=== PATIENT | male | born 1945 | race Caucasian/White ===

== ENCOUNTER 2019-06-17 07:55 | Day surgery (SDC) | payer MEDICARE, BC ==
[~2019-06-17 07:55] MED LIST: CLINDAMYCIN 600MG/50ML PREMIX 600 MG/50 ML BAG IVPB ONE; FAMOTIDINE 20MG TABLET PO ONE; MECLIZINE 25 MG TABLET PO ONE; METOCLOPRAMIDE 10 MG TABLET PO ONE
[2019-06-17] MEDS ORDERED: MIDAZOLAM HCL 2MG/2ML VIAL IV ONE (07:56)
[2019-06-17] MEDS ORDERED: LIDOCAINE 2% MDV (20MG/ML) 20ML VIAL IV ONE (07:56)
[2019-06-17] MEDS ORDERED: PROPOFOL 10 MG/ML VIAL IV ONE (07:56)
[2019-06-17] MEDS ORDERED: EPHEDRINE SULFATE 50 MG/ML ML IV ONE (07:56)
[2019-06-17] MEDS ORDERED: ROPIVACAINE HCL (NAROPIN) /PF 5MG/ML 20ML VIAL IV ONE (07:56)
[2019-06-17] MEDS ORDERED: DEXAMETHASONE 4 MG/ML 1ML VIAL IVP ONE (07:56)
[2019-06-17 08:29] LABS: INR 1.1
[2019-06-17] MEDS ORDERED: RINGERS SOLUTION,LACTATED 1,000 ML IV ONE ×2 (08:30→10:30)
[2019-06-17] MEDS ORDERED: HYDROMORPHONE HCL 2 MG/ML VIAL IV PRN (12:45)
[2019-06-17] MEDS ORDERED: DIPHENHYDRAMINE HCL 25 MG CAPSULE PO PRN (12:45)
[2019-06-17] MEDS ORDERED: SENNOSIDES/DOCUSATE SODIUM UD CAPSULE PO PRN (12:45)
[2019-06-17] MEDS ORDERED: ZOLPIDEM TARTRATE 5 MG TABLET PO PRN (12:45)
[2019-06-17] MEDS ORDERED: NALOXONE 0.4 MG/1 ML VIAL IVP PRN (12:45)
[2019-06-17] MEDS ORDERED: METOCLOPRAMIDE HCL 10 MG/2 ML VIAL IVP PRN (12:45)
[2019-06-17] MEDS ORDERED: ACETAMINOPHEN 325 MG TAB PO PRN (12:45)
[2019-06-17] MEDS ORDERED: HYDROCODONE/APAP 5/325MG TABLET PO PRN (12:45)
[2019-06-17] MEDS ORDERED: AL HYDROX/MAG HYDROX 30ML UD PO PRN (12:45)
[2019-06-17] MEDS ORDERED: MAGNESIUM HYDROXIDE 30 ML UDC PO PRN (12:45)
[2019-06-17] MEDS ORDERED: OXYCODONE HCL/APAP 5MG/325MG TABLET PO PRN ×2 (12:45)
[2019-06-17] MEDS ORDERED: OMEPRAZOLE 20MG PO PRN (12:48)
[2019-06-17] MEDS ORDERED: NITROGLYCERIN 0.4MG SL TABLET #25 BTL SL PRN (12:49)
[2019-06-17] MEDS ORDERED: FLU VAC QS 2019-20 (INPT, 6MO+) 60MCG/0.5ML IM ONE (12:56)
[2019-06-17] MEDS: HYDROCODONE/APAP 5/325MG TABLET PO PRN (14:13)
[2019-06-17] MEDS: HYDROCHLOROTHIAZIDE 25MG PO SCH (14:16)
[2019-06-17] MEDS: LISINOPRIL 5 MG PO SCH (14:16)
--- NOTE | 2019-06-17 17:01 | Rehab Evaluation ---
Patient Information - Patient Information Diagnosis: L Knee DJD Ordered Treatment: PT Evaluate and Treat Status: Initial Evaluation Surgery: Yes (L TKA) Date of Surgery: 06/17/19 Past Medical/Surgical Hx: PAST MEDICAL/SURGICAL HISTORY Past Surgical History right total hip arthroplasty; left shoulder sx; left knee arthroscopy; prostatectomy; EGDX2; COLONOSCOPY;HERNIA SX-UMB; TONSILLECTOMY. 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 Hx Transient Ischemic Attacks Yes: 2004 (TIA) Hx Weakness Yes: ALL OVER-"LACK OF EXERCISE" PMH - GI Hx Gastrointestinal Disorders Yes Hx Gastroesophageal Reflux Yes Hx Hepatitis/Jaundice Yes: 1965 [place]-NO PROBLEMS SINCE Hx Pancreatitis Yes: 5+ YRS AGO Hx Rectal Bleeding Yes: HEMMORRHOID OCCAS Hx Ulcer Yes: 5+ YRS AGO PMH - Hx Genitourinary Disorders Yes Hx Prostate Problems Yes: CA OF PROSTATE 2007 PMH - Endocrine Hx Endocrine Disorders Yes Hx Diabetes No Hx Thyroid Disease Yes: HYPOACTIVE-ON SUPPLEMENT PMH - Musculoskeletal Hx Musculoskeletal Disorders Yes Hx Arthritis Yes: ALL OVER Hx Gout Yes: LAST ONE 6 MONTHS AGO PMH - Psych Hx Psychiatric Problems Yes Hx Depression Yes: AFTER MOTHERS PASSING-BETTER NOW PMH - Hematology/Oncology Hx Hematology/Oncology Yes Disorders Hx Bruising Yes: ON WARFARIN FOR A FIB Hx Cancer Yes: PROSTATE; 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 There are 3 steps to enter the home with no railings. In the bathroom there is a walk-in shower with grab bars, a hand-held shower head, and a shower bench. There is an elevated toilet seat but no grab bars by the toilet. The patient will have assistance wtih meals and transportation following surgery. He has a front-wheeled walker and a cane a vailable to him.) Precautions: [place], Fall, Other (WBAT on the L LE) - Time With Patient Total Time Spent With Patient (Min): 30 Treatment Procedures: Detail (Initial evaluation; low complexity Patient was left in the bed with his call light and bedside table within reach. The nursing staff was notified of his position.) Subjective Information - Subjective Information Per Patient (Patient stated that he had 3/10 pain in the L knee. When he sat up in bed he reported that he was experiencing some lightheadedness.) Objective Data - Pain Pain Present: Yes (Pain in the L knee) Pain Scale Used: Numeric (1 - 10) (3/10) - Mental Status Patient Orientation: Oriented x3 - Visual Perception Appears within normal limits for therapeutic activities - ROM Not within normal limits (L knee ROM limited as expected s/p L TKA procedure. L hip and ankle, and R LE ROM is within normal limits for functional activities.) - Strength/Tone Not within normal limits (L knee strength limited as expected s/p L TKA procedure. L ankle and hip, and R LE strength is within normal limits for functional activities.) - Coordination Appears within normal limits for therapeutic activities - Bed Mobility Needs Assist (Patient used the trapezee to help move himself to the edge of the bed. He was independent to move to the edge of the bed but required minimal assistance with his L LE to move it back into bed.) - Transfers Independent (Patient was independent in supine to sit, sit to stand, stand to sit, and sit to supine transfers. Patient used the trapezee to help sit up in bed.) - Balance Balance Sitting: Good Balance Standing: Good - Sensation Intact - Gait Detail (Patient ambulated 55 feet over smooth surfaces with a front wheeled walker with contact guard using WBAT on the L LE. He became short of breath with ambulation. At the end of ambulation when the patient was walking to the toilet he kept the walker out far in front of him in and required verbal cuing to keep it closer to his body. After sitting on the toilet he stated that he was experiencing some lightheadedness.) Therapy Assessment - Therapy Assessment Detail (Patient presents with L knee pain, decreased ROM and strength in the L knee, and gait abnormalities that make him a good candidate for inpatient physical therapy services. He will progress towards meeting his inpatient therapy goals in 1-2 more sessions.) Problem List - Problem List Physical Therapy Problem List: Detail (1. L knee pain 2. Decreased L knee strength 3. Decreased L knee ROM 4. Gait abnormalities 5. Shortness of breath with ambulation 6. Decreased tolerance for stairs) Goals - Goals Physical Therapy Goals: 1. Patient will be independent and demonstrate correct technique of HEP exercises to improve ROM and strength of the L knee. 2. Patient will be able to ambulate household distances independently with a front- wheeled walker to get around his home to perform ADLs. 3. Patient will demonstrate correct technique to ascend and descend 3 stairs to be able to get in and out of his home. Plan - Plan Physical Therapy Plan: Patient will be seen for 1-2 more sessions with treatment consisting of therapeutic exercises and activities, gait training, stair traini ng, and HEP instruction.
[2019-06-17] MEDS: CLINDAMYCIN 600MG/50ML PREMIX 600 MG/50 ML BAG IVPB SCH (17:39)
[2019-06-17] MEDS: RINGERS SOLUTION,LACTATED 1,000 ML IV SCH (18:15)
[2019-06-17] MEDS: ASPIRIN 325 MG TAB ENTERIC-COATED PO SCH (21:20)
[2019-06-17] MEDS: VIMPAT 150 MG PO SCH (21:36)
[2019-06-17] MEDS ORDERED: WARFARIN 1 MG TABLET PO SCH (22:00)
[2019-06-17] MEDS ORDERED: LEVOTHYROXINE 0.075 MG PO SCH (22:00)
[2019-06-17] MEDS ORDERED: SILENOR 6 MG PO SCH (22:00)
[2019-06-17] MEDS ORDERED: CELECOXIB 200 MG PO SCH (22:00)
[2019-06-17] MEDS ORDERED: ALLOPURINOL 100MG PO SCH (22:00)
[2019-06-18] MEDS: CLINDAMYCIN 600MG/50ML PREMIX 600 MG/50 ML BAG IVPB SCH ×2 (02:39→11:06)
[2019-06-18] MEDS: HYDROCODONE/APAP 5/325MG TABLET PO PRN (07:51)
--- NOTE | 2019-06-18 08:20 | Operative Note ---
DATE OF SURGERY: 06/17/2019 SURGEON: Bandar Hernandez DO PREOPERATIVE DIAGNOSIS: Osteoarthritis of the left knee. POSTOPERATIVE DIAGNOSIS: Osteoarthritis of the left knee. OPERATION: Left total knee arthroplasty. DESCRIPTION OF PROCEDURE: This 73-year-old male was taken to the operating room and placed in the supine position on the operating room table. After spinal anesthesia was induced, the patient's left lower extremity was elevated and prepped with Hibiclens and draped in the usual sterile fashion. It was exsanguinated and the tourniquet inflated to 300 mmHg. All scrub personnel wore personal isolation suits. An anterior longitudinal midline incision was made followed by a medial parapatellar arthrotomy incision. An intracondylar drill hole was made for the intramedullary alignment mery, and a 6-degree valgus 10 mm cut was made in the distal femur. The wafers of bone were removed. Sizing jig was affixed and size 67.5 was seen to be the appropriate size. The 4-in-1 cutting block was pinned in 3 degrees of external rotation. We then directed our attention to the proximal tibia, and an extramedullary alignment guide was used to cut the proximal tibia referencing a 10 mm cut off the lateral tibial plateau. The wafer of bone was removed after a 3-degree posterior slope cut was made. Remnants of the menisci and osteophytes were removed from the posterior aspect of the joint. The sizing jig was applied and a size 75 was seen to be the appropriate size tibia. The stem punch was subsequently used. The patella was then measured, cut, and restored to anatomic height with a 37 x 8.6 mm trial. The trial components were inserted in the femur, tibia, and first a 10, 11, and finally a 12 mm bearing was placed. A 13 was too thick causing some loss of extension. The 12 mm bearing gave us satisfactory stability throughout full range of motion. The patellofemoral joint was stable. All trial components were then removed, and the wound copiously irrigated with pulse lavage lactated Ringer's solution. All bony surfaces were dried. All components were cemented into place and excess cement was removed after the insertion of each component. Initially the 75 tibial baseplate was cemented followed by the insertion of the tibial bearing, the femoral component, and finally the patella. Once the cement had hardened, the knee was again taken through range of motion and found to be stable. The wound again irrigated with lactated Ringer's solution, suctioned. A drain was placed through a separate stab incision, and the arthrotomy incision was closed with a #2 Vicryl. The subcutaneous tissue was closed with 0 Vicryl and the skin was stapled. Sterile dressings applied with a Polar Care. The patient was taken to the recovery room in satisfactory condition. GROSS PATHOLOGY: This patient had severe osteoarthritis especially of the medial compartment and patellofemoral joint of the left knee. Lateral compartment showed grade 2 changes. Final components inserted were a [employer] size 67.5 cruciate retaining femur, a 75 x 12 mm tibial bearing, a 75 mm tibia, and a 37 x 8.6 mm patella was used. CHRISTOPHER
[2019-06-18] MEDS ORDERED: LOVASTATIN 40MG PO SCH (10:00)
[2019-06-18] MEDS ORDERED: SOTALOL 80 MG PO SCH (10:00)
--- NOTE | 2019-06-18 10:04 | Rehab Evaluation ---
Patient Information - Patient Information Diagnosis: L Knee DJD Ordered Treatment: OT Evaluate and Treat Status: Initial Evaluation Surgery: Yes (L TKA) Date of Surgery: 06/17/19 Past Medical/Surgical Hx: PAST MEDICAL/SURGICAL HISTORY Past Surgical History right total hip arthroplasty; left shoulder sx; left knee arthroscopy; prostatectomy; EGDX2; COLONOSCOPY;HERNIA SX-UMB; TONSILLECTOMY. 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 Hx Transient Ischemic Attacks Yes: 2004 (TIA) Hx Weakness Yes: ALL OVER-"LACK OF EXERCISE" PMH - GI Hx Gastrointestinal Disorders Yes Hx Gastroesophageal Reflux Yes Hx Hepatitis/Jaundice Yes: 1967 [place] [employer]-NO PROBLEMS SINCE Hx Pancreatitis Yes: 5+ YRS AGO Hx Rectal Bleeding Yes: HEMMORRHOID OCCAS Hx Ulcer Yes: 5+ YRS AGO PMH - Hx Genitourinary Disorders Yes Hx Prostate Problems Yes: CA OF PROSTATE 2007 PMH - Endocrine Hx Endocrine Disorders Yes Hx Diabetes No Hx Thyroid Disease Yes: HYPOACTIVE-ON SUPPLEMENT PMH - Musculoskeletal Hx Musculoskeletal Disorders Yes Hx Arthritis Yes: ALL OVER Hx Gout Yes: LAST ONE 6 MONTHS AGO PMH - Psych Hx Psychiatric Problems Yes Hx Depression Yes: AFTER MOTHERS PASSING-BETTER NOW PMH - Hematology/Oncology Hx Hematology/Oncology Yes Disorders Hx Bruising Yes: ON WARFARIN FOR A FIB Hx Cancer Yes: PROSTATE; 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 He previously had a R LUCERO.) Social History: Detail (Patient lives with his spouse in a 2-story home, but only needs to use the first floor when returning home. There are 3 steps to enter the home with no railings however there is a rail inside the door that he says he can reach from the bottom step to help himself up. In the bathroom there is a walk-in shower with grab bars, a hand-held shower head, and a shower bench. There is an elevated toilet seat but no grab bars by the toilet. The patient will have assistance with meals and transportation following surgery. He has a manager hvac, long-handled shoe horn, front-wheeled walker and a cane available to him.) Precautions: [place], Fall, Other (WBAT on the L LE) - Time With Patient Total Time Spent With Patient (Min): 29 (1 OT eval low) Treatment Procedures: Detail (OT eval: low complexity) Subjective Information - Subjective Information Per Patient (Pt upright in bed upon therapist arrival, states, I'd like to sit up in a chair.) Objective Data - Pain Pain Present: Yes (2/10 L knee at rest, 5/10 with mvmt) Pain Scale Used: Numeric (1 - 10) - Mental Status Patient Orientation: Oriented x3 - Visual Perception Appears within normal limits for therapeutic activities - ROM Within normal limits (B UEs) - Strength/Tone Within normal limits (B UEs) - Coordination Appears within normal limits for therapeutic activities - Bed Mobility Independent (Supine >< EOB) - Transfers Independent (Sit >< stand to FWW and toilet x4 reps, slight difficulty but demos independence.) - Balance Balance Sitting: Fair Balance Standing: Fair - Sensation Intact - Gait Detail (Fxl mobility within bedroom with FWW, slow but safe.) - ADL's/IADL's Detail (OT educated Pt on adaptive technique for LB dressing, including don/doffing tedhose and reminded on wearing schedule and benefits of ice for knee. Pt demos MOD I to don underwear, pants, socks. OT educated Pt on mod techs for kitchen and bathroom safety at home and for car TFs and Pt verbalizes understanding. Pt demos SOB throughout session, especially with dressing, however Pt reports he is aware of this and it is his baseline.) - Special Tests No Therapy Assessment - Therapy Assessment Detail (Pt demos safety and MOD I with ADLs and verbalizes safe technique for home tasks. Some SOB noted which Pt states he is aware of and is his baseline.) Patient Education - Patient Education Teaching Topic: Exercise/Activity, Other (mod techs) Response: Return Demonstration, Verbalize Understanding Teaching Method: Discussion, Demonstration Teaching Recipient: Patient Barriers To Learning: None Problem List - Problem List Physical Therapy Problem List: Detail (1. L knee pain 2. Decreased L knee strength 3. Decreased L knee ROM 4. Gait abnormalities 5. Shortness of breath with ambulation 6. Decreased tolerance for stairs) Occupational Therapy Problem List: Detail (No further IP OT needs identified.) Goals - Goals Physical Therapy Goals: 1. Patient will be independent and demonstrate correct technique of HEP exercises to improve ROM and strength of the L knee. 2. Patient will be able to ambulate household distances independently with a front- wheeled walker to get around his home to perform ADLs. 3. Patient will demons trate correct technique to ascend and descend 3 stairs to be able to get in and out of his home. Occupational Therapy Goals: No further IP OT needs/goals identified. DC skilled OT services. Prognosis - Prognosis Good Plan - Plan Physical Therapy Plan: Patient will be seen for 1-2 more sessions with treatment consisting of therapeutic exercises and activities, gait training, stair training, and HEP instruction. Occupational Therapy Plan: No further IP OT needs/goals identified. DC skilled OT services. Thank you for this referral.
[2019-06-18] MEDS: HYDROCHLOROTHIAZIDE 25MG PO SCH (10:53)
[2019-06-18] MEDS: LISINOPRIL 5 MG PO SCH (10:54)
[2019-06-18] MEDS: VIMPAT 150 MG PO SCH (10:59)
--- NOTE | 2019-06-18 11:12 | Physical Therapy Tx Note ---
Physical Therapy Tx Note - Treatment Note Tolerated: Good Total Time Spent With Patient: 30 Physical Therapy Tx Note: Detail (The patient ambulated with front wheeled walker a distance of 45 feet x 1 WBAT on the L LE independently. The patient's ambulation distance was limited due to shortness of breath. The patient was taken to stairs via wheelchair. The patient ambulated on stairs using folded walker and railing using proper technique with supervision for safety. The patient completed the following TKA HEP including quad sets, gluteal sets, hamstring sets, SLR and seated heel slides. The patient has met all inpatient PT goals and is discharged from inpt. PT.) Physical Therapy Problem List: Detail (1. L knee pain 2. Decreased L knee strength 3. Decreased L knee ROM 4. Gait abnormalities 5. Shortness of breath with ambulation 6. Decreased tolerance for stairs) Physical Therapy Goals: 1. Patient will be independent and demonstrate correct technique of HEP exercises to improve ROM and strength of the L knee. (Goal Met). 2. Patient will be able to ambulate household distances independently with a front-wheeled walker to get around his home to perform ADLs. (Goal Met). 3. Patient will demonstrate correct technique to ascend and descend 3 stairs to be able to get in and out of his home. (Goal Met) Physical Therapy Plan: The patient has met all inpatient PT goals. The pt. is to continue with OT patient PT.
[2019-06-18] MEDS: ASPIRIN 325 MG TAB ENTERIC-COATED PO SCH (11:20)
[2019-06-18] MEDS: RINGERS SOLUTION,LACTATED 1,000 ML IV SCH (11:21)
[2019-06-18] MEDS ORDERED: WARFARIN 1 MG TABLET PO SCH (22:00)
--- NOTE | 2019-06-20 08:01 | Discharge Summary ---
DATE OF ADMISSION: 06/17/2019 DATE OF DISCHARGE: 06/18/2019 ADMITTING DIAGNOSIS: Osteoarthritis of the left knee. DISCHARGE DIAGNOSIS: Osteoarthritis of the left knee. OPERATIVE PROCEDURE: Elective left total knee arthroplasty. DESCRIPTION: This 73-year-old male was admitted for total knee arthroplasty and tolerated the operative procedure well. The drain was removed the first postoperative day. He progressed satisfactorily. Showed no sign of complication, no sign of DVT, chest pain, or shortness of breath. The patient's discharge instructions were to follow up in the clinic in 2 weeks. He was to wear his LEVI hose during the day and remove them at night. He will have his outpatient physical therapy as scheduled. He will resume his normal Coumadin regimen that he takes for atrial fibrillation. He will start that today. He will take Elton 5/325 mg, #40, 1 every 6 hours as necessary for pain. Routine wound care instructions were given. Should he have any problems prior to being seen, he was instructed to call my office. CHRISTOPHER
== END 2019-06-18 13:23 | disposition home or self-care (01) ==
LOC: SUR 07:55 → MEDSURG 12:35 → SUR 06-18 13:23
PROVIDERS: ATTEND Orthopaedic Surgery
DX: M17.12 Unilateral primary osteoarthritis, left knee (principal); I10 Essential (primary) hypertension; I48.91 Unspecified atrial fibrillation; Z79.01 Long term (current) use of anticoagulants; G40.409 Other generalized epilepsy and epileptic syndromes, not intractable, without status epilepticus; M06.9 Rheumatoid arthritis, unspecified; M10.9 Gout, unspecified; K21.9 Gastro-esophageal reflux disease without esophagitis; E03.9 Hypothyroidism, unspecified; C61 Malignant neoplasm of prostate; Z86.73 Personal history of transient ischemic attack (TIA), and cerebral infarction without residual deficits; Q24.9 Congenital malformation of heart, unspecified; G47.33 Obstructive sleep apnea (adult) (pediatric)
CPT/HCPCS: 27447; 01402; 64447; 85610; 90686; 76942; J1170; J2795; J7120